=== PATIENT | female | born 1950 | race Caucasian/White ===

== ENCOUNTER 2017-01-11 16:04 | Emergency (ER) | payer MEDICARE, OTHER ==
[~2017-01-11] VITALS: Ht 162.6 cm; Wt 93.5 kg
[~2017-01-11 16:04] MED LIST: AZIT500T3 PO; CIPR7.5D4 BOTH EARS; CLIN-73 PO; FERR27TA PO; IBUP-1542 PO; IBUP800T25 PO; NPH10OT BOTH EARS; POLY17PO6 PO; TAMS-14 PO; TEM15CR5 TOP
[2017-01-11 16:55] VITALS: Ht 162.6 cm; Wt 93.5 kg
[2017-01-11] MEDS ORDERED: ALBUTEROL/IPRATROPIUM (NEB) 3 ML AMP HHN STA (17:55)
[2017-01-11] MEDS ORDERED: ACETAMINOPHEN 160 MG/5ML CUP PO STA (17:57)
[2017-01-11 19:14] LABS: URINE BLOOD (Dip) POC Negative (NEGATIVE)
--- NOTE | 2017-01-11 19:32 | ERD ---
ER Documentation Chief Complaint Date/Time DATE: 01/11/17 TIME: 19:26 Chief Complaint LOWER/MIDDLE BACK AND BILATERAL SHOULDER PAIN, EAR PAIN, AP X2 DAYS. HPI Pleasant 66-year-old female coming in to emergency department today with multiple complaints. Patient reports right outer ear and neck pain and right trapezius pain. Patient states intermittent right temporal headache, patient denies injury numbness or tingling radiating down her arms to her fingers. Patient also reports back pain and abdominal pain starting on the right and radiates to the left lower quadrant and thigh. Patient reports she has history of renal calculi, and diverticulitis seen on CT scan done on previous visit. She denies dysuria, difficulty initiating or stopping her urine. stream. Denies hematuria. Reports pain was 8/10 on pain scale upon entering the emergency room and has decreased without intervention to 4/10 on pain scale. Patient refuses pain medication, states she does not like to take pain medication or any medication unless indicated. Patient has history of psoriasis behind right ear and that she has topical treatment at home. Patient denies chest pain, shortness of breath, palpitations, or dizziness. Patient denies nausea, vomiting, fever, or chills constipation or diarrhea blood in stool or dysuria hematuria Patient reports that she has never had a colonoscopy screening test ROS All systems reviewed and are negative except as per history of present illness. Medications Home Meds Active Scripts Mupirocin* (Bactroban*) 2% -22 Gram Oint...g., 1 APPLIC TOP BID for 7 Days, EA Prov:CHANELLE,ROSIO 01/11/17 Tramadol HCl (Tramadol HCl) 50 Mg Tablet, 50 MG PO Q4 Y for PAIN, #20 TAB Prov:CHANELLE,ROSIO 01/11/17 Ciprofloxacin Hcl* (Ciprofloxacin Hcl*) 500 Mg Tablet, 500 MG PO BID for 10 Days , TAB Prov:CHANELLE,ROSIO 01/11/17 Ibuprofen* (Motrin*) 800 Mg Tab, 800 MG PO Q6H Y for PAIN AND OR ELEVATED TEMP, #30 TAB Prov:RADHA HATCH PA-C 04/27/16 Clindamycin Hcl* (Clindamycin Hcl*) 300 Mg Capsule, 300 MG PO TID for 7 Days, CAP Prov:RADHA HATCH PA-C 04/27/16 Tamsulosin Hcl* (Flomax*) 0.4 Mg Cap.er.24h, 0.4 MG PO DAILY, #10 CAP Prov:ÓSCAR HOUSER 03/21/16 Clobetasol Propionate* (Temovate*) 0.05%-15gm Cream..g., 1 APPLIC TOP BID for 14 Days, TUB Prov:LAURA RCUZ MD 01/08/16 Polyethylene Glycol* (Miralax*) 17 Gm Powd.pack, 17 GM PO DAILY, #30 PACKET Prov:LAURA CRUZ MD 01/08/16 Neomycin/Polymyxin/Hydrocort* (Cortisporin* Otic) 10 Ml Susp, 4 DROP BOTH EARS QID for 7 Days, EA Prov:LAURA CRUZ MD 01/08/16 Ibuprofen* (Motrin*) 600 Mg Tab, 600 MG PO Q8 for PAIN AND/OR INFLAMMATION, #30 Prov:LIAN LLOYD MD 09/02/15 Ciprofloxacin Hcl/Dexameth (Ciprodex Otic Suspension) 7.5 Ml Drops.susp, 4 DROP BOTH EARS BID, #1 EA 1 Refill Prov:LIAN LLOYD MD 09/02/15 Azithromycin* (Zithromax*) 500 Mg Tablet, 500 MG PO DAILY, #5 TAB Prov:LIAN LLOYD MD 09/02/15 Reported Medications Ferrous Sulfate (Iron) 1 Tab Tablet, 1 TAB PO DAILY 02/05/13 Allergies Allergies: Coded Allergies: Penicillins (Verified Allergy, Unknown, 01/11/17) PMhx/Soc History of Surgery: Yes ( 1969, OVARIAN CYST 1984, HYSTERECTOMY) Anesthesia Reaction: No Hx Neurological Disorder: No Hx Respiratory Disorders: No Hx Cardiac Disorders: No Hx Psychiatric Problems: No Hx Miscellaneous Medical Probl: No (ENDOMETRIAL CA) Hx Alcohol Use: No Hx Substance Use: No Hx Tobacco Use: Yes Smoking Status: Former smoker Physical Exam Vitals Vital Signs Date Time Temp Pulse Resp B/P Pulse Ox O2 Delivery O2 Flow Rate FiO2 01/11/17 19:54 98.5 109 18 175/79 98 Room Air 01/11/17 16:55 99.1 121 16 172/79 99 Vital signs stable, nursing notes reviewed,. Physical Exam Const: [] Head: Atraumatic Eyes: Normal Conjunctiva ENT: Normal External Ears, Nose and Mouth. Neck: Full range of motion..~ No meningismus. Resp: Clear to auscultation bilaterally Cardio: Regular rate and rhythm, no murmurs Abd: Soft, non tender, non distended. Normal bowel sounds Skin: No petechiae or rashes Back: No midline or flank tenderness Ext: No cyanosis, or edema Neur: Awake and alert Psych: Normal Mood and Affect Results 24 hrs Laboratory Tests Test 01/11/17 19:17 Bedside Urine Blood Negative Bedside Urine Glucose (UA) Negative Bedside Urine Ketones (LAB) Negative Bedside Urine Leukocyte Esterase (L Negative Bedside Urine Nitrite (LAB) Negative Bedside Urine Protein (LAB) Negative Bedside Urine pH (LAB) 5.5 Current Medications Medications (Trade) Dose Ordered Sig/Champ Route PRN Reason Start Time Stop Time Status Last Admin Dose Admin Albuterol/ Ipratropium (Duoneb) 3 ml ONCE STAT HHN 01/11/17 17:55 01/11/17 17:56 Cancel Acetaminophen (Tylenol Liquid) 1,000 mg ONCE STAT PO 01/11/17 17:57 01/11/17 17:58 Cancel Urinalysis essentially normal, no leukocytosis, nitrates, or hematuria Procedures/MDM Pleasant 66-year-old female coming in today with multiple complaints that she has not been evaluated by her primary care physician. Patient has history of psoriasis behind her right ear, red scaly plaque noted tender to palpation with warmth and edema extending to just under earlobe. Findings consistent with cellulitis secondary to psoriasis. Mastoiditis and otitis media excluded with examination, no mastoid tenderness, tympanic membranes normal. Patient also has abdominal pain across her lower abdomen with a normal urinalysis is currently ruling out urinary tract infection.. Findings likely related to diverticular disease and will respond to antibiotic therapy.. Discussed disease process, need for screening colonoscopy, and lifestyle modifications at great length with patient for 15 minutes. Patient states she does not like to take antibiotics, is allergic to penicillin, and very sensitive. Patient is asking for the lowest dose of antibiotics needed to treat symptoms. I feel the patient is stable for discharge at this time. I have chosen to treat patient with Cipro 500 mg twice daily 10 days only not adding Flagyl. Medication will treat patient's outer ear cellulitis as well as abdominal symptoms. Patient has no evidence of acute complication, obstruction or absence is not suspected at this time, vitals are stable, with normal bowel movements reported without evidence of bleeding, patient has documentation of diverticular disease as previously mentioned, repeat imaging not indicated but stressed the importance to follow-up with primary physician for reevaluation in 48 hours. I have discussed results, examination findings, the treatment plan with the patient prior to discharge. Indications for emergent reevaluation, side effects of medication were also discussed. All questions were answered. Patient verbalizes understanding and agrees with plan of care. Departure Condition: Good Patient Instructions: Cellulitis, Diverticulitis, Diverticulosis Comments Thank you for for coming to [facility] for your care today. Please ask your nurse or provider if you have questions about your care today and do not leave until all your questions have been answered. Please use any medications given as directed and follow-up with your doctor (or the doctor you were referred to) in the next 2-3 days. If you do not have a primary care doctor you may follow up at the [facility] (listed below). You may also use motrin and tylenol as needed for fever and/or pain unless instructed otherwise by your provider or nurse. Indications for more urgent follow-up have been discussed, but you may return to the Emergency Department at ANY time for any worrisome or worsening symptoms. If you have abdominal pain, please know that no test or exam you received is perfect and you should follow up within 8 hours for continued pain. If you had any imaging studies today, such as an X-Ray or CT Scan, these studies will be reviewed later by a radiologist. You will be called if there are important findings that were not identified today, so make sure the contact information you provided at registration is correct. If you received any narcotic pain control medicine today, such as Vicodin, Morphine or Dilaudid, your coordination and judgment may be affected for a number of hours. Please do not drive or operate heavy machinery, and you may want someone to assist you at home. If you were given a prescription for narcotic medication, be aware that it is very addictive- use sparingly and only if necessary. ROSIO ROCA Jan 11, 2017 19:32
[2017-01-11 19:54] VITALS: BP 175/79; PULSE 109; RESP 18; TEMP 98.5
[2017-01-11] MEDS ORDERED: CIPR500T4 PO (20:19)
[2017-01-11] MEDS ORDERED: MUPI22OI2 TOP (20:19)
[2017-01-11] MEDS ORDERED: TRAM50TA2 PO (20:19)
== END 2017-01-11 20:37 | disposition home or self-care (01) ==
LOC: FTE 16:04
DX: H60.11 Cellulitis of right external ear (principal); L40.9 Psoriasis, unspecified; Z87.891 Personal history of nicotine dependence
CPT/HCPCS: 81003; 99284

== ENCOUNTER → 2018-03-05 | Outpatient (CLI) | END | disposition home or self-care (01) ==